=== PATIENT | male | born 1960 | race Caucasian/White ===

== ENCOUNTER 2017-04-02 17:32 | Emergency (ER) | payer OTHER ==
[~2017-04-02] VITALS: Ht 167.6 cm; Wt 87.5 kg
[~2017-04-02 17:32] MED LIST: CARI250T PO; CARV3.122 PO; HYDR-3240 PO; LISI-170 PO
[2017-04-02] MEDS ORDERED: ONDANSETRON 2MG/ML, 2ML ONE (17:46)
[2017-04-02] MEDS ORDERED: SODIUM CHLORIDE 0.9% 1,000ML IVBOLUS ONE (18:00)
[2017-04-02] MEDS ORDERED: SODIUM CHLORIDE FLUSH 10ML SYR IVF ONE (18:00)
[2017-04-02] MEDS ORDERED: ONDANSETRON 2MG/ML, 2ML IVPush ONE (18:00)
[2017-04-02] MEDS ORDERED: HYDR200T5 PO (18:13)
[2017-04-02] MEDS ORDERED: LEFL10TA14 PO (18:13)
[2017-04-02] MEDS ORDERED: PRED1TAB PO (18:13)
[2017-04-02] MEDS ORDERED: METF500T4 PO (18:13)
[2017-04-02 18:18] LABS: HEMATOCRIT 39.5 % (39.2-51.8); HEMOGLOBIN 13.2 g/dL (13.7-18.0); WHITE BLOOD COUNT 6.6 x10^3/uL (3.4-10)
[2017-04-02 18:31] LABS: BLOOD UREA NITROGEN 11 mg/dL (7-18)
[2017-04-02 18:35] LABS: ASPARTATE AMINO TRANSFERASE 327 U/L (15-37)
[2017-04-02] MEDS ORDERED: PROMETHAZINE 25 MG/ML, 1ML ONE (20:58)
[2017-04-02] MEDS ORDERED: PROMETHAZINE 25 MG/ML, 1ML IM STA (20:59)
[2017-04-02 21:12] VITALS: BP 130/95
== END 2017-04-02 23:09 | disposition home or self-care (01) ==
LOC: ED 22:22
DX: K52.9 Noninfective gastroenteritis and colitis, unspecified (principal); R94.5 Abnormal results of liver function studies; M06.9 Rheumatoid arthritis, unspecified; E11.9 Type 2 diabetes mellitus without complications; I10 Essential (primary) hypertension
CPT/HCPCS: 36415; 76700; 80053; 83690; 85025; 86704; 86706; 86708; 86803; 87046; 87324; 87340; 89055; 96361; 96372; 96374; 99285; J2405; J2550; J7030; 87899

== ENCOUNTER 2017-05-11 07:28 | Day surgery (SDC) | payer OTHER ==
[~2017-05-11] VITALS: Ht 167.6 cm; Wt 84.2 kg
[~2017-05-11 07:28] MED LIST changes: +HYDR200T5 PO; +LEFL10TA14 PO; +METF500T4 PO; +PRED1TAB PO
[2017-05-11 08:17] VITALS: BP 152/105
[2017-05-11] MEDS ORDERED: SODIUM CHLORIDE 0.9% 1,000 ML IV SCH (08:30)
[2017-05-11] MEDS ORDERED: LIDOCAINE 1%, 20ML ONE (08:51)
[2017-05-11] MEDS ORDERED: FLUMAZENIL 0.1 MG/1 ML, 5ML ONE (09:05)
[2017-05-11] MEDS ORDERED: MIDAZOLAM 1 MG/ML, 5ML ONE (09:05)
[2017-05-11] MEDS ORDERED: FENTANYL PF 100 MCG/2ML ONE (09:05)
[2017-05-11] MEDS ORDERED: NALOXONE 1 MG/ML, 2ML ONE (09:05)
== END 2017-05-11 11:00 ==
LOC: RAD 07:28 → OUT 11:00
PROVIDERS: ATTEND Internal Medicine
DX: E86.0 Dehydration (principal); R76.8 Other specified abnormal immunological findings in serum; K52.9 Noninfective gastroenteritis and colitis, unspecified; I10 Essential (primary) hypertension; Z86.19 Personal history of other infectious and parasitic diseases
CPT/HCPCS: 36415; 47000; 76942; 85610; 88307; 88313; 99156; 99157; J2250; J3010; J3490; J7030; J2310

== ENCOUNTER 2021-04-20 09:19 | Inpatient (IN) | payer OTHER ==
[~2021-04-20] VITALS: Ht 167.6 cm; Wt 71.4 kg
[~2021-04-20 09:19] MED LIST changes: +HYDR-2214 PO; -HYDR-3240 PO; +LEFL10TA PO; -LEFL10TA14 PO; +METF500T17 PO; -METF500T4 PO; -PRED1TAB PO; +PRED1TAB19 PO
--- NOTE | 2021-04-20 10:04 | NUR ---
DIRECTOR ONCOLOGY: PT PLACED ON O2 IN TRIAGE, 2 LPM VIA NV. SPO2 INCREASE TO 92%.
--- NOTE | 2021-04-20 10:09 | NUR ---
COLLIN RN: THIS IS A 60 YEAR OLD MALE WHO C/O COVID SYMPTOMS. FEVER, CHILLS, CONGESTION, COUGH, SOB, LOST OF TASTE/SMELL, AND N/V.
[2021-04-20] MEDS ORDERED: SODIUM CHLORIDE 0.9% 1,000ML IVBOLUS ONE (10:30)
[2021-04-20] MEDS ORDERED: ONDANSETRON 2MG/ML, 2ML IVPush ONE (10:30)
[2021-04-20] MEDS ORDERED: ONDANSETRON 2MG/ML, 2ML ONE (10:35)
--- NOTE | 2021-04-20 10:48 | NUR ---
18 GAUGE IV STARTED LEFT AC BY GATE KEEPER STUDENT, BLOOD DRAWN AND SENT TO LAB. PATIENT CONNECTED TO MONITOR, VSS, NADN, CALL LIGHT WITHIN REACH.
[2021-04-20 11:00] LABS: BASOPHILS % (AUTO) 1 % (0-1); EOSINOPHILS % (AUTO) 0 % (1-7); LYMPHOCYTES % (AUTO) 14 % (22-44); MEAN CORPUSCULAR HEMOGLOBIN 28.8 pg (27.5-34.5); MEAN CORPUSCULAR HGB CONC 33.9 g/dL (33.2-36.2); MEAN PLATELET VOLUME 9.6 fL (7.4-10.4); MONOCYTES % (AUTO) 7 % (2-9); NEUTROPHILS % (AUTO) 79 % (42-75); PLATELET COUNT 128 x10^3/uL (130-400); RED BLOOD COUNT 4.71 x10^6/uL (4.38-5.82)
[2021-04-20 11:09] LABS: ALBUMIN 3.1 g/dL (3.4-5.0); ANION GAP 9 mmol/L (5-15); CALCIUM 8.8 mg/dL (8.5-10.1); CHLORIDE 103 mmol/L (98-107)
[2021-04-20 11:10] LABS: CREATININE 1.14 mg/dL (0.7-1.3)
[2021-04-20] MEDS ORDERED: TRAZODONE 50MG TABLET PO PRN (12:00)
[2021-04-20] MEDS ORDERED: DEXAMETHASONE 4 MG/ML, 1ML IVPush ONE (12:00)
[2021-04-20] MEDS: LISINOPRIL 20 MG TABLET PO SCH ×2 (12:00→20:33)
[2021-04-20] MEDS: LEFLUNOMIDE 10 MG TABLET PO SCH (12:00)
[2021-04-20] MEDS ORDERED: CEFTRIAXONE 1,000 MG in DEXTROSE 5% 50 ML IVPB ONE (12:00)
[2021-04-20] MEDS ORDERED: ENOXAPARIN 30 MG/0.3 ML SQ SCH (12:00)
[2021-04-20] MEDS ORDERED: CARVEDILOL 3.125 MG TABLET PO SCH (12:00)
[2021-04-20] MEDS: HYDROXYCHLOROQUINE 200 MG TABLET PO SCH (12:00)
[2021-04-20] MEDS: metFORMIN 500 MG TABLET PO SCH ×2 (12:00→20:30)
[2021-04-20] MEDS ORDERED: metFORMIN 500 MG TABLET ONE (12:07)
[2021-04-20] MEDS ORDERED: CHOLECALCIFEROL 5,000u TAB ONE (12:07)
[2021-04-20] MEDS ORDERED: ENOXAPARIN 40 MG/0.4 ML ONE (12:07)
[2021-04-20] MEDS ORDERED: LISINOPRIL 10 MG TABLET ONE (12:08)
[2021-04-20] MEDS ORDERED: GUAIFENESIN ER 600 MG TABLET ONE (12:08)
[2021-04-20] MEDS ORDERED: ZINC SULFATE 220 MG CAPSULE ONE (12:08)
[2021-04-20] MEDS ORDERED: CARVEDILOL 3.125 MG TABLET ONE (12:08)
[2021-04-20] MEDS: CHOLECALCIFEROL 5,000u TAB PO SCH (12:15)
[2021-04-20] MEDS: ZINC SULFATE 220 MG CAPSULE PO SCH (12:16)
[2021-04-20] MEDS: GUAIFENESIN ER 600 MG TABLET PO SCH ×2 (12:16→20:30)
--- NOTE | 2021-04-20 12:25 | NUR ---
REPORT TO UZMA GUSMAN RN FOR TRANSFER OF PATIENT CARE.
--- NOTE | 2021-04-20 12:25 | NUR ---
PATIENT MEDICATED PER eMAR, PATIENT REPORTS TAKING HIS COREG, METFORMIN, LEFLUNOMIDE, PLAQUENIL, AND LISINOPRIL THIS MORNING. NEXT DOSE DUE THIS EVENING. NON-ADMINISTRATION OF 1200 DOSES.
[2021-04-20] MEDS ORDERED: DEXAMETHASONE 4 MG/ML, 5ML IVPush ONE (12:30)
[2021-04-20] MEDS ORDERED: AZITHROMYCIN 500 MG in SODIUM CHLORIDE 0.9% 250 ML IV ONE (13:00)
[2021-04-20 13:17] LABS: C-REACTIVE PROTEIN, QUANT 4.5 mg/dL (0.02-0.49)
--- NOTE | 2021-04-20 13:23 | NUR ---
PATIENT TRANSFERRED TO FLOOR IN STABLE CONDITION VIA GURNEY WITH LOCK ASSEMBLER. ALL PATIENT BELONGINGS TAKEN TO FLOOR WITH PATIENT.
[2021-04-20 13:28] VITALS: BP 92/60
[2021-04-20] MEDS ORDERED: CARV-39 PO (13:45)
[2021-04-20] MEDS ORDERED: ASPI-191 PO (13:45)
[2021-04-20] MEDS ORDERED: PRAS10TA4 PO (13:45)
[2021-04-20] MEDS ORDERED: LOSA100T2 PO (13:45)
[2021-04-20] MEDS ORDERED: AMLO-211 PO (13:45)
[2021-04-20] MEDS ORDERED: ROSU40TA22 PO (13:45)
[2021-04-20] MEDS: INSULIN LISPRO 100 UNITS/ML, PEN SQ-INSULIN SCH ×2 (16:00→22:28)
[2021-04-20] MEDS: ASCORBIC ACID 500 MG TABLET PO SCH (16:17)
[2021-04-20] MEDS ORDERED: REMDESIVIR 200 MG in SODIUM CHLORIDE 0.9% 250 ML IVPB ONE (17:00)
[2021-04-20] MEDS ORDERED: PHARMACY INSTRUCTION MC SCH (17:00)
[2021-04-20 19:19] VITALS: BP 103/68
[2021-04-20] MEDS: ACETAMINOPHEN 325 MG TABLET PO PRN (20:31)
[2021-04-20] MEDS: (Rosuvastatin Calcium 40 MG) PO SCH (21:00)
[2021-04-20] MEDS: ENOXAPARIN 40 MG/0.4 ML SQ SCH (22:25)
[2021-04-20] MEDS ORDERED: OMNIPAQUE 350 MG/ML, 100ML BOTTLE ONE (23:23)
[2021-04-21 02:01] VITALS: BP 104/70
[2021-04-21 05:03] LABS: ALBUMIN 2.9 g/dL (3.4-5.0); ANION GAP 7 mmol/L (5-15); CALCIUM 8.3 mg/dL (8.5-10.1); CHLORIDE 110 mmol/L (98-107)
[2021-04-21 05:20] LABS: ALANINE AMINOTRANSFERASE 39 U/L (12-78); ALKALINE PHOSPHATASE 73 U/L (45-117); BILIRUBIN,TOTAL 0.7 mg/dL (0.2-1.0); CREATININE 0.75 mg/dL (0.7-1.3); TOTAL PROTEIN 6.8 g/dL (6.4-8.2)
[2021-04-21] MEDS: INSULIN LISPRO 100 UNITS/ML, PEN SQ-INSULIN SCH ×4 (07:00→21:27)
[2021-04-21 08:55] VITALS: BP 111/73
[2021-04-21] MEDS: DEXAMETHASONE 4 MG/ML, 1ML IVPush SCH (09:00)
[2021-04-21] MEDS: ASPIRIN 81 MG TABLET EC PO SCH (09:28)
[2021-04-21] MEDS: PRASUGREL 10 MG TABLET PO SCH (09:28)
[2021-04-21] MEDS: ASCORBIC ACID 500 MG TABLET PO SCH ×2 (09:28→16:24)
[2021-04-21] MEDS: ZINC SULFATE 220 MG CAPSULE PO SCH (09:30)
[2021-04-21] MEDS: LOSARTAN 100 MG TAB PO SCH (09:30)
[2021-04-21] MEDS: GUAIFENESIN ER 600 MG TABLET PO SCH ×2 (09:30→21:26)
[2021-04-21] MEDS: CHOLECALCIFEROL 5,000u TAB PO SCH (09:32)
[2021-04-21] MEDS: CARVEDILOL 25 MG TABLET PO SCH (09:32)
[2021-04-21] MEDS: LISINOPRIL 20 MG TABLET PO SCH ×2 (09:32→21:00)
[2021-04-21] MEDS: LEFLUNOMIDE 10 MG TABLET PO SCH (09:34)
[2021-04-21] MEDS: AMLODIPINE 10 MG TAB PO SCH (09:35)
[2021-04-21] MEDS: metFORMIN 500 MG TABLET PO SCH ×2 (09:35→21:26)
[2021-04-21] MEDS: HYDROXYCHLOROQUINE 200 MG TABLET PO SCH (09:36)
[2021-04-21] MEDS: ENOXAPARIN 40 MG/0.4 ML SQ SCH (12:17)
[2021-04-21 12:50] VITALS: BP 107/65
[2021-04-21] MEDS: ACETAMINOPHEN 325 MG TABLET PO PRN (14:45)
[2021-04-21] MEDS: REMDESIVIR 100 MG in SODIUM CHLORIDE 0.9% 250 ML IVPB SCH (16:23)
[2021-04-21 19:35] VITALS: BP 99/63
[2021-04-21] MEDS: (Rosuvastatin Calcium 40 MG) PO SCH (21:00)
[2021-04-21] MEDS ORDERED: DIPHENOXYLATE/ATROPINE TABLET ONE (21:42)
[2021-04-21] MEDS ORDERED: DIPHENOXYLATE/ATROPINE TABLET PO PRN (22:00)
[2021-04-21 22:49] LABS: CLOSTRIDIUM DIFFICILE ANTIGEN NEGATIVE; CLOSTRIDIUM DIFFICILE TOXIN NEGATIVE (Negative)
[2021-04-21] MEDS: MELATONIN 5 MG TABLET PO PRN (23:09)
[2021-04-22] MEDS: ENOXAPARIN 40 MG/0.4 ML SQ SCH ×2 (00:12→11:43)
[2021-04-22 02:05] VITALS: BP 109/72
[2021-04-22 07:02] LABS: CHLORIDE 111 mmol/L (98-107)
[2021-04-22 07:08] LABS: ALANINE AMINOTRANSFERASE 54 U/L (12-78); ALBUMIN 2.6 g/dL (3.4-5.0); ALKALINE PHOSPHATASE 74 U/L (45-117); ANION GAP 6 mmol/L (5-15); BILIRUBIN,TOTAL 0.4 mg/dL (0.2-1.0); CALCIUM 8.5 mg/dL (8.5-10.1); CREATININE 0.67 mg/dL (0.7-1.3); TOTAL PROTEIN 6.2 g/dL (6.4-8.2)
[2021-04-22] MEDS: INSULIN LISPRO 100 UNITS/ML, PEN SQ-INSULIN SCH ×4 (07:16→21:36)
[2021-04-22] MEDS: ZINC SULFATE 220 MG CAPSULE PO SCH (08:48)
[2021-04-22] MEDS: CARVEDILOL 25 MG TABLET PO SCH (08:49)
[2021-04-22] MEDS: metFORMIN 500 MG TABLET PO SCH ×2 (08:49→21:35)
[2021-04-22] MEDS: ASCORBIC ACID 500 MG TABLET PO SCH ×2 (08:49→17:03)
[2021-04-22] MEDS: GUAIFENESIN ER 600 MG TABLET PO SCH ×2 (08:50→20:36)
[2021-04-22] MEDS: HYDROXYCHLOROQUINE 200 MG TABLET PO SCH (08:50)
[2021-04-22] MEDS: LOSARTAN 100 MG TAB PO SCH (08:50)
[2021-04-22] MEDS: AMLODIPINE 10 MG TAB PO SCH (08:50)
[2021-04-22] MEDS: ASPIRIN 81 MG TABLET EC PO SCH (08:50)
[2021-04-22] MEDS: LISINOPRIL 20 MG TABLET PO SCH ×2 (08:51→21:00)
[2021-04-22] MEDS: LEFLUNOMIDE 10 MG TABLET PO SCH (08:51)
[2021-04-22] MEDS: PRASUGREL 10 MG TABLET PO SCH (08:51)
[2021-04-22] MEDS: CHOLECALCIFEROL 5,000u TAB PO SCH (08:51)
[2021-04-22] MEDS: DEXAMETHASONE 4 MG/ML, 1ML IVPush SCH (08:52)
[2021-04-22] MEDS: REMDESIVIR 100 MG in SODIUM CHLORIDE 0.9% 250 ML IVPB SCH (17:03)
[2021-04-22 19:12] VITALS: BP 133/85
[2021-04-22] MEDS: ACETAMINOPHEN 325 MG TABLET PO PRN (20:34)
[2021-04-22] MEDS: (Rosuvastatin Calcium 40 MG) PO SCH (21:36)
[2021-04-22] MEDS: MELATONIN 5 MG TABLET PO PRN (21:37)
[2021-04-23] MEDS: ENOXAPARIN 40 MG/0.4 ML SQ SCH ×2 (00:51→11:44)
[2021-04-23 02:42] VITALS: BP 129/81
[2021-04-23] MEDS: INSULIN LISPRO 100 UNITS/ML, PEN SQ-INSULIN SCH ×4 (07:00→21:50)
[2021-04-23 07:28] LABS: BASOPHILS % (AUTO) 0 % (0-1); EOSINOPHILS % (AUTO) 0 % (1-7); LYMPHOCYTES % (AUTO) 10 % (22-44); MEAN CORPUSCULAR HEMOGLOBIN 28.1 pg (27.5-34.5); MEAN CORPUSCULAR HGB CONC 33.2 g/dL (33.2-36.2); MEAN PLATELET VOLUME 9.2 fL (7.4-10.4); MONOCYTES % (AUTO) 8 % (2-9); NEUTROPHILS % (AUTO) 82 % (42-75); PLATELET COUNT 149 x10^3/uL (130-400); RED BLOOD COUNT 4.47 x10^6/uL (4.38-5.82); RED CELL DISTRIBUTION WIDTH 14.9 % (9.4-14.8)
[2021-04-23 07:37] LABS: CHLORIDE 110 mmol/L (98-107)
[2021-04-23 07:45] VITALS: BP 123/77
[2021-04-23 07:46] LABS: ALANINE AMINOTRANSFERASE 62 U/L (12-78); ALBUMIN 2.4 g/dL (3.4-5.0); ALKALINE PHOSPHATASE 79 U/L (45-117); ANION GAP 9 mmol/L (5-15); BILIRUBIN,TOTAL 0.5 mg/dL (0.2-1.0); CALCIUM 8.3 mg/dL (8.5-10.1); CREATININE 0.56 mg/dL (0.7-1.3)
[2021-04-23] MEDS: AMLODIPINE 10 MG TAB PO SCH (09:00)
[2021-04-23] MEDS: LISINOPRIL 20 MG TABLET PO SCH ×3 (09:00→21:00)
[2021-04-23] MEDS: DEXAMETHASONE 4 MG/ML, 1ML IVPush SCH (09:49)
[2021-04-23] MEDS: ASPIRIN 81 MG TABLET EC PO SCH (09:51)
[2021-04-23] MEDS: GUAIFENESIN ER 600 MG TABLET PO SCH ×2 (09:51→21:34)
[2021-04-23] MEDS: HYDROXYCHLOROQUINE 200 MG TABLET PO SCH (09:51)
[2021-04-23] MEDS: LOSARTAN 100 MG TAB PO SCH (09:51)
[2021-04-23] MEDS: ASCORBIC ACID 500 MG TABLET PO SCH ×2 (09:51→16:52)
[2021-04-23] MEDS: metFORMIN 500 MG TABLET PO SCH ×2 (09:51→21:34)
[2021-04-23] MEDS: CHOLECALCIFEROL 5,000u TAB PO SCH (09:51)
[2021-04-23] MEDS: ZINC SULFATE 220 MG CAPSULE PO SCH (09:52)
[2021-04-23] MEDS: CARVEDILOL 25 MG TABLET PO SCH (09:52)
[2021-04-23] MEDS: PRASUGREL 10 MG TABLET PO SCH (10:20)
[2021-04-23] MEDS: LEFLUNOMIDE 10 MG TABLET PO SCH (10:21)
[2021-04-23] MEDS ORDERED: FUROSEMIDE 20 MG TABLET PO ONE ×2 (12:30→17:00)
[2021-04-23 12:33] VITALS: BP 107/70
[2021-04-23] MEDS: REMDESIVIR 100 MG in SODIUM CHLORIDE 0.9% 250 ML IVPB SCH (16:51)
[2021-04-23] MEDS ORDERED: FUROSEMIDE 20 MG TABLET PO SCH (17:00)
[2021-04-23 20:56] VITALS: BP 130/83
[2021-04-23] MEDS: (Rosuvastatin Calcium 40 MG) PO SCH (21:34)
[2021-04-24] MEDS: ENOXAPARIN 40 MG/0.4 ML SQ SCH ×2 (00:28→11:58)
[2021-04-24 02:42] VITALS: BP 150/71
[2021-04-24] MEDS: ACETAMINOPHEN 325 MG TABLET PO PRN (03:58)
[2021-04-24 05:52] LABS: BASOPHILS % (AUTO) 0 % (0-1); EOSINOPHILS % (AUTO) 0 % (1-7); LYMPHOCYTES % (AUTO) 10 % (22-44); MEAN CORPUSCULAR HEMOGLOBIN 28.1 pg (27.5-34.5); MEAN CORPUSCULAR HGB CONC 33.5 g/dL (33.2-36.2); MEAN PLATELET VOLUME 9.3 fL (7.4-10.4); MONOCYTES % (AUTO) 7 % (2-9); NEUTROPHILS % (AUTO) 83 % (42-75); PLATELET COUNT 172 x10^3/uL (130-400); RED BLOOD COUNT 4.47 x10^6/uL (4.38-5.82); RED CELL DISTRIBUTION WIDTH 15.1 % (9.4-14.8)
[2021-04-24 05:57] LABS: ALBUMIN 2.4 g/dL (3.4-5.0); ANION GAP 7 mmol/L (5-15); CHLORIDE 106 mmol/L (98-107)
[2021-04-24 06:22] LABS: % IRON SATURATION 20 % (20-55); ALANINE AMINOTRANSFERASE 146 U/L (12-78); ALKALINE PHOSPHATASE 94 U/L (45-117); BILIRUBIN,TOTAL 0.6 mg/dL (0.2-1.0); CREATININE 0.62 mg/dL (0.7-1.3); IRON LEVEL 57 mcg/dL (65-175); TOTAL IRON BINDING CAPACITY 279 mcg/dL (250-450); TOTAL PROTEIN 6.1 g/dL (6.4-8.2)
[2021-04-24 06:47] LABS: FREE T4 (FREE THYROXINE) 1.24 ng/dL (0.76-1.46)
[2021-04-24 07:54] VITALS: BP 125/83
[2021-04-24] MEDS: INSULIN LISPRO 100 UNITS/ML, PEN SQ-INSULIN SCH ×4 (07:56→21:21)
[2021-04-24] MEDS: LISINOPRIL 20 MG TABLET PO SCH ×3 (09:35→21:00)
[2021-04-24] MEDS: ZINC SULFATE 220 MG CAPSULE PO SCH (09:36)
[2021-04-24] MEDS: PRASUGREL 10 MG TABLET PO SCH (09:36)
[2021-04-24] MEDS: GUAIFENESIN ER 600 MG TABLET PO SCH ×2 (09:37→21:04)
[2021-04-24] MEDS: metFORMIN 500 MG TABLET PO SCH ×2 (09:37→21:04)
[2021-04-24] MEDS: CHOLECALCIFEROL 5,000u TAB PO SCH (09:37)
[2021-04-24] MEDS: ASCORBIC ACID 500 MG TABLET PO SCH ×2 (09:37→16:20)
[2021-04-24] MEDS: HYDROXYCHLOROQUINE 200 MG TABLET PO SCH (09:37)
[2021-04-24] MEDS: AMLODIPINE 10 MG TAB PO SCH ×2 (09:37→09:43)
[2021-04-24] MEDS: CARVEDILOL 25 MG TABLET PO SCH (09:38)
[2021-04-24] MEDS: LEFLUNOMIDE 10 MG TABLET PO SCH (09:38)
[2021-04-24] MEDS: LOSARTAN 100 MG TAB PO SCH (09:38)
[2021-04-24] MEDS: ASPIRIN 81 MG TABLET EC PO SCH (09:39)
[2021-04-24] MEDS: DEXAMETHASONE 4 MG/ML, 1ML IVPush SCH (09:39)
[2021-04-24] MEDS ORDERED: POTASSIUM CHLORIDE 20 MEQ PACKET PO SCH (10:30)
[2021-04-24] MEDS: FUROSEMIDE 20 MG TABLET PO SCH ×2 (11:53→16:19)
[2021-04-24 12:07] VITALS: BP 120/80
[2021-04-24 12:43] VITALS: BP 108/63
[2021-04-24] MEDS: REMDESIVIR 100 MG in SODIUM CHLORIDE 0.9% 250 ML IVPB SCH (16:04)
[2021-04-24 18:50] VITALS: BP 134/88
[2021-04-24] MEDS: (Rosuvastatin Calcium 40 MG) PO SCH (21:00)
[2021-04-25 00:06] VITALS: BP 130/79
[2021-04-25] MEDS: ENOXAPARIN 40 MG/0.4 ML SQ SCH ×3 (00:36→23:29)
[2021-04-25 06:30] LABS: BASOPHILS % (AUTO) 0 % (0-1); EOSINOPHILS % (AUTO) 0 % (1-7); LYMPHOCYTES % (AUTO) 11 % (22-44); MEAN CORPUSCULAR HEMOGLOBIN 27.8 pg (27.5-34.5); MEAN CORPUSCULAR HGB CONC 33.3 g/dL (33.2-36.2); MEAN PLATELET VOLUME 9.1 fL (7.4-10.4); MONOCYTES % (AUTO) 6 % (2-9); NEUTROPHILS % (AUTO) 82 % (42-75); PLATELET COUNT 185 x10^3/uL (130-400); RED BLOOD COUNT 4.52 x10^6/uL (4.38-5.82); RED CELL DISTRIBUTION WIDTH 14.6 % (9.4-14.8)
[2021-04-25 06:41] LABS: ALBUMIN 2.3 g/dL (3.4-5.0); ANION GAP 5 mmol/L (5-15); CALCIUM 8.1 mg/dL (8.5-10.1); CHLORIDE 107 mmol/L (98-107); INTERNATIONAL NORMALIZED RATIO 1.19 (0.93-1.1); PROTHROMBIN TIME 12.6 Seconds (9.6-11.5)
[2021-04-25] MEDS: INSULIN LISPRO 100 UNITS/ML, PEN SQ-INSULIN SCH ×4 (07:00→20:24)
[2021-04-25 07:05] LABS: ALANINE AMINOTRANSFERASE 149 U/L (12-78); ALKALINE PHOSPHATASE 99 U/L (45-117); BILIRUBIN,TOTAL 0.6 mg/dL (0.2-1.0); CREATININE 0.58 mg/dL (0.7-1.3); TOTAL PROTEIN 6.3 g/dL (6.4-8.2)
[2021-04-25 07:27] VITALS: BP 147/91
[2021-04-25] MEDS: CEFTRIAXONE 1,000 MG in DEXTROSE 5% 50 ML IVPB SCH (08:48)
[2021-04-25] MEDS: ASCORBIC ACID 500 MG TABLET PO SCH ×2 (08:48→17:03)
[2021-04-25] MEDS: POTASSIUM CHLORIDE 20 MEQ TAB.ER.PRT PO SCH (08:48)
[2021-04-25] MEDS: CARVEDILOL 25 MG TABLET PO SCH (08:49)
[2021-04-25] MEDS: DEXAMETHASONE 4 MG/ML, 1ML IVPush SCH (08:49)
[2021-04-25] MEDS: PRASUGREL 10 MG TABLET PO SCH (08:49)
[2021-04-25] MEDS: FUROSEMIDE 20 MG TABLET PO SCH ×2 (08:49→17:04)
[2021-04-25] MEDS: ZINC SULFATE 220 MG CAPSULE PO SCH (08:49)
[2021-04-25] MEDS: LISINOPRIL 20 MG TABLET PO SCH ×2 (08:49→20:14)
[2021-04-25] MEDS: GUAIFENESIN ER 600 MG TABLET PO SCH ×2 (08:50→20:13)
[2021-04-25] MEDS: LOSARTAN 100 MG TAB PO SCH (08:50)
[2021-04-25] MEDS: CHOLECALCIFEROL 5,000u TAB PO SCH (08:50)
[2021-04-25] MEDS: HYDROXYCHLOROQUINE 200 MG TABLET PO SCH (08:50)
[2021-04-25] MEDS: ASPIRIN 81 MG TABLET EC PO SCH (08:50)
[2021-04-25] MEDS: metFORMIN 500 MG TABLET PO SCH ×2 (08:50→20:13)
[2021-04-25] MEDS: AZITHROMYCIN 500 MG TABLET PO SCH (08:50)
[2021-04-25] MEDS: LEFLUNOMIDE 10 MG TABLET PO SCH (08:53)
[2021-04-25] MEDS: AMLODIPINE 10 MG TAB PO SCH (08:53)
[2021-04-25] MEDS: FERROUS SULFATE 325 MG TABLET PO SCH (11:28)
[2021-04-25 13:34] VITALS: BP 107/72
[2021-04-25 18:43] VITALS: BP 124/76
[2021-04-25] MEDS: (Rosuvastatin Calcium 40 MG) PO SCH (20:13)
[2021-04-26 01:32] VITALS: BP 118/69
[2021-04-26 06:26] LABS: BASOPHILS % (AUTO) 0 % (0-1); EOSINOPHILS % (AUTO) 0 % (1-7); LYMPHOCYTES % (AUTO) 14 % (22-44); MEAN CORPUSCULAR HEMOGLOBIN 28.4 pg (27.5-34.5); MEAN CORPUSCULAR HGB CONC 34.1 g/dL (33.2-36.2); MEAN PLATELET VOLUME 9.2 fL (7.4-10.4); MONOCYTES % (AUTO) 8 % (2-9); NEUTROPHILS % (AUTO) 78 % (42-75); PLATELET COUNT 199 x10^3/uL (130-400); RED BLOOD COUNT 4.58 x10^6/uL (4.38-5.82); RED CELL DISTRIBUTION WIDTH 14.9 % (9.4-14.8)
[2021-04-26 06:34] LABS: ALBUMIN 2.3 g/dL (3.4-5.0); ANION GAP 7 mmol/L (5-15); CHLORIDE 106 mmol/L (98-107)
[2021-04-26 06:51] LABS: ALANINE AMINOTRANSFERASE 120 U/L (12-78); ALKALINE PHOSPHATASE 102 U/L (45-117); BILIRUBIN,TOTAL 0.6 mg/dL (0.2-1.0); CREATININE 0.65 mg/dL (0.7-1.3); TOTAL PROTEIN 6.5 g/dL (6.4-8.2)
[2021-04-26] MEDS: INSULIN LISPRO 100 UNITS/ML, PEN SQ-INSULIN SCH ×4 (07:00→20:41)
[2021-04-26] MEDS: ZINC SULFATE 220 MG CAPSULE PO SCH (08:19)
[2021-04-26] MEDS: POTASSIUM CHLORIDE 20 MEQ TAB.ER.PRT PO SCH (08:19)
[2021-04-26] MEDS: LEFLUNOMIDE 10 MG TABLET PO SCH (08:19)
[2021-04-26] MEDS: ASPIRIN 81 MG TABLET EC PO SCH (08:19)
[2021-04-26] MEDS: CARVEDILOL 25 MG TABLET PO SCH ×2 (08:20→20:40)
[2021-04-26] MEDS: PRASUGREL 10 MG TABLET PO SCH (08:20)
[2021-04-26] MEDS: ASCORBIC ACID 500 MG TABLET PO SCH ×2 (08:21→18:23)
[2021-04-26] MEDS: DEXAMETHASONE 4 MG/ML, 1ML IVPush SCH (08:22)
[2021-04-26] MEDS: CHOLECALCIFEROL 5,000u TAB PO SCH (08:22)
[2021-04-26] MEDS: FUROSEMIDE 20 MG TABLET PO SCH ×2 (08:22→18:24)
[2021-04-26] MEDS: metFORMIN 500 MG TABLET PO SCH ×2 (08:23→20:40)
[2021-04-26] MEDS: LOSARTAN 100 MG TAB PO SCH (08:23)
[2021-04-26] MEDS: AZITHROMYCIN 500 MG TABLET PO SCH (08:23)
[2021-04-26] MEDS: GUAIFENESIN ER 600 MG TABLET PO SCH ×2 (08:23→20:40)
[2021-04-26] MEDS: CEFTRIAXONE 1,000 MG in DEXTROSE 5% 50 ML IVPB SCH (08:36)
[2021-04-26 09:11] VITALS: BP 118/67
[2021-04-26 09:30] LABS: C-REACTIVE PROTEIN, QUANT 1.3 mg/dL (0.02-0.49)
[2021-04-26] MEDS: ENOXAPARIN 40 MG/0.4 ML SQ SCH ×2 (12:09→23:52)
[2021-04-26] MEDS: REMDESIVIR 100 MG in SODIUM CHLORIDE 0.9% 250 ML IVPB SCH (12:13)
[2021-04-26 13:32] VITALS: BP 122/68
[2021-04-26 19:02] VITALS: BP 134/80
[2021-04-26] MEDS: (Rosuvastatin Calcium 40 MG) PO SCH (20:39)
[2021-04-26] MEDS: AMLODIPINE 10 MG TAB PO SCH (20:40)
[2021-04-27 00:08] VITALS: BP 113/72
[2021-04-27] MEDS: INSULIN LISPRO 100 UNITS/ML, PEN SQ-INSULIN SCH ×4 (07:00→20:46)
[2021-04-27 07:46] LABS: BASOPHILS % (AUTO) 0 % (0-1); EOSINOPHILS % (AUTO) 0 % (1-7); LYMPHOCYTES % (AUTO) 16 % (22-44); MEAN CORPUSCULAR HEMOGLOBIN 27.9 pg (27.5-34.5); MEAN CORPUSCULAR HGB CONC 33.2 g/dL (33.2-36.2); MEAN PLATELET VOLUME 8.7 fL (7.4-10.4); MONOCYTES % (AUTO) 6 % (2-9); NEUTROPHILS % (AUTO) 77 % (42-75); PLATELET COUNT 219 x10^3/uL (130-400); RED BLOOD COUNT 4.54 x10^6/uL (4.38-5.82); RED CELL DISTRIBUTION WIDTH 14.8 % (9.4-14.8)
[2021-04-27 07:54] LABS: ALBUMIN 2.3 g/dL (3.4-5.0); ANION GAP 7 mmol/L (5-15); CALCIUM 8.5 mg/dL (8.5-10.1); CHLORIDE 103 mmol/L (98-107)
[2021-04-27 07:57] LABS: ALANINE AMINOTRANSFERASE 98 U/L (12-78); ALKALINE PHOSPHATASE 102 U/L (45-117); BILIRUBIN,TOTAL 0.7 mg/dL (0.2-1.0); CREATININE 0.58 mg/dL (0.7-1.3); TOTAL PROTEIN 6.6 g/dL (6.4-8.2)
[2021-04-27 08:38] VITALS: BP 131/85
[2021-04-27] MEDS: POTASSIUM CHLORIDE 20 MEQ TAB.ER.PRT PO SCH (08:49)
[2021-04-27] MEDS: metFORMIN 500 MG TABLET PO SCH ×2 (08:49→20:44)
[2021-04-27] MEDS: GUAIFENESIN ER 600 MG TABLET PO SCH (08:51)
[2021-04-27] MEDS: ASPIRIN 81 MG TABLET EC PO SCH (08:51)
[2021-04-27] MEDS: LOSARTAN 100 MG TAB PO SCH (08:52)
[2021-04-27] MEDS: ASCORBIC ACID 500 MG TABLET PO SCH ×2 (08:52→17:30)
[2021-04-27] MEDS: CHOLECALCIFEROL 5,000u TAB PO SCH (08:53)
[2021-04-27] MEDS: CARVEDILOL 25 MG TABLET PO SCH ×2 (08:53→20:44)
[2021-04-27] MEDS: ZINC SULFATE 220 MG CAPSULE PO SCH (08:54)
[2021-04-27] MEDS: AZITHROMYCIN 500 MG TABLET PO SCH (08:54)
[2021-04-27] MEDS: CEFTRIAXONE 1,000 MG in DEXTROSE 5% 50 ML IVPB SCH (08:55)
[2021-04-27] MEDS: PRASUGREL 10 MG TABLET PO SCH (08:55)
[2021-04-27] MEDS: FUROSEMIDE 20 MG TABLET PO SCH ×2 (08:55→17:31)
[2021-04-27] MEDS: DEXAMETHASONE 4 MG/ML, 1ML IVPush SCH (08:58)
[2021-04-27] MEDS: LEFLUNOMIDE 10 MG TABLET PO SCH (09:00)
[2021-04-27] MEDS: FERROUS SULFATE 325 MG TABLET PO SCH (11:06)
[2021-04-27] MEDS: REMDESIVIR 100 MG in SODIUM CHLORIDE 0.9% 250 ML IVPB SCH (12:08)
[2021-04-27] MEDS: ENOXAPARIN 40 MG/0.4 ML SQ SCH (12:09)
[2021-04-27 15:00] VITALS: BP 106/63
[2021-04-27 18:46] VITALS: BP 113/68
[2021-04-27] MEDS: GUAIFENESIN/DM 200-20MG, 10ML UDC PO SCH (20:44)
[2021-04-27] MEDS: AMLODIPINE 10 MG TAB PO SCH (20:44)
[2021-04-27] MEDS: (Rosuvastatin Calcium 40 MG) PO SCH (20:48)
[2021-04-28] MEDS: GUAIFENESIN/DM 200-20MG, 10ML UDC PO SCH ×4 (00:46→21:21)
[2021-04-28] MEDS: ENOXAPARIN 40 MG/0.4 ML SQ SCH ×2 (00:46→12:41)
[2021-04-28 00:51] VITALS: BP 100/64
[2021-04-28] MEDS: ACETAMINOPHEN 325 MG TABLET PO PRN (03:55)
[2021-04-28 04:21] LABS: BASOPHILS % (AUTO) 0 % (0-1); EOSINOPHILS % (AUTO) 1 % (1-7); LYMPHOCYTES % (AUTO) 14 % (22-44); MEAN CORPUSCULAR HEMOGLOBIN 28.3 pg (27.5-34.5); MEAN PLATELET VOLUME 8.7 fL (7.4-10.4); MONOCYTES % (AUTO) 6 % (2-9); NEUTROPHILS % (AUTO) 79 % (42-75); PLATELET COUNT 219 x10^3/uL (130-400); RED BLOOD COUNT 4.62 x10^6/uL (4.38-5.82); RED CELL DISTRIBUTION WIDTH 14.8 % (9.4-14.8)
[2021-04-28 04:33] LABS: ALBUMIN 2.2 g/dL (3.4-5.0); CHLORIDE 100 mmol/L (98-107)
[2021-04-28 04:37] LABS: ALANINE AMINOTRANSFERASE 85 U/L (12-78); ALKALINE PHOSPHATASE 103 U/L (45-117); ANION GAP 7 mmol/L (5-15); BILIRUBIN,TOTAL 0.6 mg/dL (0.2-1.0); CALCIUM 8.5 mg/dL (8.5-10.1); CREATININE 0.67 mg/dL (0.7-1.3); TOTAL PROTEIN 6.6 g/dL (6.4-8.2)
[2021-04-28] MEDS: INSULIN LISPRO 100 UNITS/ML, PEN SQ-INSULIN SCH ×4 (07:00→21:24)
[2021-04-28] MEDS: DEXAMETHASONE 4 MG/ML, 1ML IVPush SCH (08:25)
[2021-04-28] MEDS: metFORMIN 500 MG TABLET PO SCH ×2 (08:26→21:21)
[2021-04-28] MEDS: ASPIRIN 81 MG TABLET EC PO SCH (08:26)
[2021-04-28] MEDS: PRASUGREL 10 MG TABLET PO SCH (08:27)
[2021-04-28] MEDS: LOSARTAN 100 MG TAB PO SCH (08:27)
[2021-04-28] MEDS: ASCORBIC ACID 500 MG TABLET PO SCH ×2 (08:27→16:47)
[2021-04-28] MEDS: POTASSIUM CHLORIDE 20 MEQ TAB.ER.PRT PO SCH (08:27)
[2021-04-28] MEDS: FUROSEMIDE 20 MG TABLET PO SCH ×2 (08:28→16:48)
[2021-04-28] MEDS: CHOLECALCIFEROL 5,000u TAB PO SCH (08:28)
[2021-04-28] MEDS: CARVEDILOL 25 MG TABLET PO SCH ×2 (08:28→21:21)
[2021-04-28] MEDS: ZINC SULFATE 220 MG CAPSULE PO SCH (08:28)
[2021-04-28 08:35] VITALS: BP 100/65
[2021-04-28] MEDS ORDERED: LEFLUNOMIDE 20 MG TABLET PO SCH (09:00)
[2021-04-28 11:55] VITALS: BP 97/70
[2021-04-28 12:00] VITALS: BP 97/70
[2021-04-28] MEDS: REMDESIVIR 100 MG in SODIUM CHLORIDE 0.9% 250 ML IVPB SCH (12:41)
[2021-04-28 18:20] VITALS: BP 118/82
[2021-04-28] MEDS: (Rosuvastatin Calcium 40 MG) PO SCH (21:00)
[2021-04-28] MEDS: AMLODIPINE 10 MG TAB PO SCH (21:21)
[2021-04-28] MEDS: MELATONIN 5 MG TABLET PO PRN (21:21)
[2021-04-29 00:06] VITALS: BP 95/54
[2021-04-29] MEDS: GUAIFENESIN/DM 200-20MG, 10ML UDC PO SCH ×4 (01:12→22:17)
[2021-04-29] MEDS: ACETAMINOPHEN 325 MG TABLET PO PRN ×2 (01:19→22:17)
[2021-04-29 04:50] LABS: BASOPHILS % (AUTO) 0 % (0-1); EOSINOPHILS % (AUTO) 1 % (1-7); LYMPHOCYTES % (AUTO) 12 % (22-44); MEAN CORPUSCULAR HEMOGLOBIN 28.2 pg (27.5-34.5); MEAN CORPUSCULAR HGB CONC 33.6 g/dL (33.2-36.2); MEAN PLATELET VOLUME 8.6 fL (7.4-10.4); MONOCYTES % (AUTO) 6 % (2-9); NEUTROPHILS % (AUTO) 81 % (42-75); PLATELET COUNT 238 x10^3/uL (130-400); RED BLOOD COUNT 4.76 x10^6/uL (4.38-5.82); RED CELL DISTRIBUTION WIDTH 15.1 % (9.4-14.8)
[2021-04-29 05:00] LABS: ALANINE AMINOTRANSFERASE 69 U/L (12-78); ALBUMIN 2.2 g/dL (3.4-5.0); ANION GAP 9 mmol/L (5-15); CALCIUM 8.6 mg/dL (8.5-10.1); CHLORIDE 104 mmol/L (98-107); CREATININE 0.68 mg/dL (0.7-1.3)
[2021-04-29 05:02] LABS: ALKALINE PHOSPHATASE 113 U/L (45-117); BILIRUBIN,TOTAL 0.5 mg/dL (0.2-1.0); TOTAL PROTEIN 6.7 g/dL (6.4-8.2)
[2021-04-29 07:04] VITALS: BP 96/64
[2021-04-29] MEDS: PRASUGREL 10 MG TABLET PO SCH (08:57)
[2021-04-29] MEDS: CHOLECALCIFEROL 5,000u TAB PO SCH (08:57)
[2021-04-29] MEDS: metFORMIN 500 MG TABLET PO SCH ×2 (08:57→17:01)
[2021-04-29] MEDS: ASCORBIC ACID 500 MG TABLET PO SCH ×2 (08:57→17:01)
[2021-04-29] MEDS: LOSARTAN 100 MG TAB PO SCH (08:57)
[2021-04-29] MEDS: FUROSEMIDE 20 MG TABLET PO SCH ×2 (08:58→17:01)
[2021-04-29] MEDS: ASPIRIN 81 MG TABLET EC PO SCH (08:58)
[2021-04-29] MEDS: DEXAMETHASONE 4 MG/ML, 1ML IVPush SCH (08:58)
[2021-04-29] MEDS: POTASSIUM CHLORIDE 20 MEQ TAB.ER.PRT PO SCH (08:58)
[2021-04-29] MEDS: ZINC SULFATE 220 MG CAPSULE PO SCH (08:58)
[2021-04-29] MEDS: CARVEDILOL 25 MG TABLET PO SCH ×2 (08:58→22:18)
[2021-04-29] MEDS: INSULIN LISPRO 100 UNITS/ML, PEN SQ-INSULIN SCH ×4 (08:59→22:18)
[2021-04-29] MEDS ORDERED: SODIUM CHLORIDE INHALATION 7%, 4 ML NPPB ONE ×2 (09:30→14:00)
[2021-04-29] MEDS: ENOXAPARIN 40 MG/0.4 ML SQ SCH ×2 (12:00)
[2021-04-29 12:16] VITALS: BP 123/80
[2021-04-29] MEDS: REMDESIVIR 100 MG in SODIUM CHLORIDE 0.9% 250 ML IVPB SCH (12:23)
[2021-04-29] MEDS: FERROUS SULFATE 325 MG TABLET PO SCH (12:24)
[2021-04-29] MEDS ORDERED: GUAIFENESIN 100 MG/5 ML, 10ML UDC PO ONE (14:30)
[2021-04-29] MEDS ORDERED: GUAIFENESIN 200 MG TABLET PO ONE (14:30)
[2021-04-29 20:00] VITALS: BP 101/64
[2021-04-29] MEDS: (Rosuvastatin Calcium 40 MG) PO SCH (21:00)
[2021-04-29] MEDS: AMLODIPINE 10 MG TAB PO SCH (22:17)
[2021-04-30] MEDS: GUAIFENESIN/DM 200-20MG, 10ML UDC PO SCH ×4 (01:15→22:21)
[2021-04-30 02:01] VITALS: BP 103/63
[2021-04-30 05:13] LABS: BASOPHILS % (AUTO) 0 % (0-1); EOSINOPHILS % (AUTO) 0 % (1-7); LYMPHOCYTES % (AUTO) 9 % (22-44); MEAN CORPUSCULAR HGB CONC 33.2 g/dL (33.2-36.2); MEAN PLATELET VOLUME 8.6 fL (7.4-10.4); MONOCYTES % (AUTO) 5 % (2-9); NEUTROPHILS % (AUTO) 87 % (42-75); PLATELET COUNT 229 x10^3/uL (130-400); RED BLOOD COUNT 4.73 x10^6/uL (4.38-5.82); RED CELL DISTRIBUTION WIDTH 14.8 % (9.4-14.8)
[2021-04-30 05:21] LABS: CHLORIDE 106 mmol/L (98-107)
[2021-04-30 05:29] LABS: ALANINE AMINOTRANSFERASE 59 U/L (12-78); ALKALINE PHOSPHATASE 99 U/L (45-117); ANION GAP 6 mmol/L (5-15); BILIRUBIN,TOTAL 0.5 mg/dL (0.2-1.0); CALCIUM 8.4 mg/dL (8.5-10.1); CREATININE 0.58 mg/dL (0.7-1.3); TOTAL PROTEIN 6.3 g/dL (6.4-8.2)
[2021-04-30] MEDS: FUROSEMIDE 20 MG TABLET PO SCH ×2 (07:58→17:00)
[2021-04-30] MEDS: LOSARTAN 100 MG TAB PO SCH (07:58)
[2021-04-30] MEDS: ASPIRIN 81 MG TABLET EC PO SCH (07:58)
[2021-04-30] MEDS: CARVEDILOL 25 MG TABLET PO SCH ×2 (07:58→22:22)
[2021-04-30] MEDS: ZINC SULFATE 220 MG CAPSULE PO SCH (07:58)
[2021-04-30] MEDS: INSULIN LISPRO 100 UNITS/ML, PEN SQ-INSULIN SCH ×4 (07:58→22:25)
[2021-04-30] MEDS: DEXAMETHASONE 4 MG/ML, 1ML IVPush SCH (07:59)
[2021-04-30] MEDS: POTASSIUM CHLORIDE 20 MEQ TAB.ER.PRT PO SCH (07:59)
[2021-04-30] MEDS: CHOLECALCIFEROL 5,000u TAB PO SCH (07:59)
[2021-04-30] MEDS: PRASUGREL 10 MG TABLET PO SCH (07:59)
[2021-04-30] MEDS: metFORMIN 500 MG TABLET PO SCH ×2 (07:59→17:00)
[2021-04-30 08:00] VITALS: BP 113/75
[2021-04-30] MEDS: ASCORBIC ACID 500 MG TABLET PO SCH ×2 (08:01→16:59)
[2021-04-30] MEDS: REMDESIVIR 100 MG in SODIUM CHLORIDE 0.9% 250 ML IVPB SCH (11:57)
[2021-04-30] MEDS: ENOXAPARIN 40 MG/0.4 ML SQ SCH ×2 (11:57)
[2021-04-30 14:00] VITALS: BP 99/57
[2021-04-30 20:00] VITALS: BP 120/81
[2021-04-30] MEDS: (Rosuvastatin Calcium 40 MG) PO SCH (21:00)
[2021-04-30] MEDS: AMLODIPINE 10 MG TAB PO SCH (22:22)
[2021-05-01] VITALS (23 sets, daily range): BP systolic 56–121; BP diastolic 32–82
[2021-05-01] MEDS: GUAIFENESIN/DM 200-20MG, 10ML UDC PO SCH ×4 (02:25→17:31)
[2021-05-01 04:50] LABS: BASOPHILS % (AUTO) 0 % (0-1); EOSINOPHILS % (AUTO) 0 % (1-7); LYMPHOCYTES % (AUTO) 7 % (22-44); MEAN CORPUSCULAR HEMOGLOBIN 28.4 pg (27.5-34.5); MEAN CORPUSCULAR HGB CONC 33.5 g/dL (33.2-36.2); MEAN PLATELET VOLUME 8.6 fL (7.4-10.4); MONOCYTES % (AUTO) 5 % (2-9); NEUTROPHILS % (AUTO) 88 % (42-75); PLATELET COUNT 203 x10^3/uL (130-400); RED BLOOD COUNT 4.68 x10^6/uL (4.38-5.82); RED CELL DISTRIBUTION WIDTH 14.9 % (9.4-14.8)
[2021-05-01 04:58] LABS: ALBUMIN 1.9 g/dL (3.4-5.0); ANION GAP 7 mmol/L (5-15); CALCIUM 7.9 mg/dL (8.5-10.1); CHLORIDE 103 mmol/L (98-107)
[2021-05-01 05:00] LABS: CREATININE 0.59 mg/dL (0.7-1.3)
[2021-05-01] MEDS: ZINC SULFATE 220 MG CAPSULE PO SCH (07:36)
[2021-05-01] MEDS: INSULIN LISPRO 100 UNITS/ML, PEN SQ-INSULIN SCH ×4 (07:36→20:21)
[2021-05-01] MEDS: ASPIRIN 81 MG TABLET EC PO SCH (07:36)
[2021-05-01] MEDS: CHOLECALCIFEROL 5,000u TAB PO SCH (07:36)
[2021-05-01] MEDS: LOSARTAN 100 MG TAB PO SCH (07:36)
[2021-05-01] MEDS: PRASUGREL 10 MG TABLET PO SCH (07:36)
[2021-05-01] MEDS: FUROSEMIDE 20 MG TABLET PO SCH ×2 (07:37→17:28)
[2021-05-01] MEDS: CARVEDILOL 25 MG TABLET PO SCH ×2 (07:37→20:42)
[2021-05-01] MEDS: metFORMIN 500 MG TABLET PO SCH ×2 (07:37→17:29)
[2021-05-01] MEDS: ASCORBIC ACID 500 MG TABLET PO SCH ×2 (07:37→17:29)
[2021-05-01] MEDS: POTASSIUM CHLORIDE 20 MEQ TAB.ER.PRT PO SCH (07:37)
[2021-05-01] MEDS: DEXAMETHASONE 4 MG/ML, 1ML IVPush SCH (07:38)
[2021-05-01] MEDS: CODEINE SULFATE 30 MG TABLET PO SCH ×3 (10:30→22:30)
[2021-05-01] MEDS: FERROUS SULFATE 325 MG TABLET PO SCH (12:22)
[2021-05-01] MEDS: ENOXAPARIN 40 MG/0.4 ML SQ SCH ×2 (12:22)
[2021-05-01] MEDS: GUAIFENESIN 100 MG/5 ML, 10ML UDC PO SCH ×2 (15:00→20:18)
[2021-05-01] MEDS: MELATONIN 5 MG TABLET PO PRN (20:18)
[2021-05-01] MEDS: (Rosuvastatin Calcium 40 MG) PO SCH (20:20)
[2021-05-01] MEDS: AMLODIPINE 10 MG TAB PO SCH (20:43)
[2021-05-02] VITALS (9 sets, daily range): BP systolic 91–125; BP diastolic 48–83
[2021-05-02] MEDS: ENOXAPARIN 40 MG/0.4 ML SQ SCH ×2 (02:20→14:06)
[2021-05-02] MEDS: GUAIFENESIN 100 MG/5 ML, 10ML UDC PO SCH (02:20)
[2021-05-02] MEDS: GUAIFENESIN/DM 200-20MG, 10ML UDC PO SCH ×4 (02:24→20:18)
[2021-05-02 04:47] LABS: BASOPHILS % (AUTO) 0 % (0-1); EOSINOPHILS % (AUTO) 0 % (1-7); LYMPHOCYTES % (AUTO) 6 % (22-44); MEAN CORPUSCULAR HEMOGLOBIN 28.3 pg (27.5-34.5); MEAN CORPUSCULAR HGB CONC 33.4 g/dL (33.2-36.2); MEAN PLATELET VOLUME 8.5 fL (7.4-10.4); MONOCYTES % (AUTO) 6 % (2-9); NEUTROPHILS % (AUTO) 88 % (42-75); PLATELET COUNT 204 x10^3/uL (130-400); RED BLOOD COUNT 4.65 x10^6/uL (4.38-5.82); RED CELL DISTRIBUTION WIDTH 14.8 % (9.4-14.8)
[2021-05-02 04:56] LABS: ALBUMIN 1.9 g/dL (3.4-5.0); ANION GAP 6 mmol/L (5-15); CALCIUM 8.3 mg/dL (8.5-10.1); CHLORIDE 102 mmol/L (98-107)
[2021-05-02 05:00] LABS: ALANINE AMINOTRANSFERASE 65 U/L (12-78); ALKALINE PHOSPHATASE 105 U/L (45-117); BILIRUBIN,TOTAL 0.5 mg/dL (0.2-1.0); CREATININE 0.66 mg/dL (0.7-1.3); TOTAL PROTEIN 5.9 g/dL (6.4-8.2)
[2021-05-02] MEDS: metFORMIN 500 MG TABLET PO SCH ×2 (07:37→16:39)
[2021-05-02] MEDS: FUROSEMIDE 20 MG TABLET PO SCH ×2 (07:37→16:39)
[2021-05-02] MEDS: ZINC SULFATE 220 MG CAPSULE PO SCH (07:37)
[2021-05-02] MEDS: ASCORBIC ACID 500 MG TABLET PO SCH ×2 (07:38→16:39)
[2021-05-02] MEDS: PRASUGREL 10 MG TABLET PO SCH (07:38)
[2021-05-02] MEDS: POTASSIUM CHLORIDE 20 MEQ TAB.ER.PRT PO SCH (07:38)
[2021-05-02] MEDS: CHOLECALCIFEROL 5,000u TAB PO SCH (07:38)
[2021-05-02] MEDS: ASPIRIN 81 MG TABLET EC PO SCH (07:38)
[2021-05-02] MEDS: DEXAMETHASONE 4 MG/ML, 1ML IVPush SCH (07:39)
[2021-05-02] MEDS: CODEINE SULFATE 30 MG TABLET PO SCH ×3 (07:40→20:00)
[2021-05-02] MEDS: INSULIN LISPRO 100 UNITS/ML, PEN SQ-INSULIN SCH ×4 (07:40→20:28)
[2021-05-02] MEDS: CARVEDILOL 25 MG TABLET PO SCH ×2 (09:00→20:19)
[2021-05-02] MEDS: LOSARTAN 100 MG TAB PO SCH (09:00)
[2021-05-02] MEDS: (Rosuvastatin Calcium 40 MG) PO SCH (20:19)
[2021-05-03] MEDS: MELATONIN 5 MG TABLET PO PRN (00:05)
[2021-05-03] MEDS: ENOXAPARIN 40 MG/0.4 ML SQ SCH ×2 (01:34→15:43)
[2021-05-03] MEDS: GUAIFENESIN/DM 200-20MG, 10ML UDC PO SCH ×5 (01:34→21:22)
[2021-05-03] MEDS: CODEINE SULFATE 30 MG TABLET PO SCH ×4 (01:36→20:00)
[2021-05-03 01:45] VITALS: BP 114/76
[2021-05-03 06:36] VITALS: BP 100/68
[2021-05-03] MEDS: DEXAMETHASONE 4 MG/ML, 1ML IVPush SCH (08:51)
[2021-05-03] MEDS: metFORMIN 500 MG TABLET PO SCH ×2 (08:51→15:44)
[2021-05-03] MEDS: ZINC SULFATE 220 MG CAPSULE PO SCH (08:51)
[2021-05-03] MEDS: ASCORBIC ACID 500 MG TABLET PO SCH ×2 (08:51→15:43)
[2021-05-03] MEDS: ASPIRIN 81 MG TABLET EC PO SCH (08:51)
[2021-05-03] MEDS: PRASUGREL 10 MG TABLET PO SCH (08:51)
[2021-05-03] MEDS: POTASSIUM CHLORIDE 20 MEQ TAB.ER.PRT PO SCH (08:51)
[2021-05-03] MEDS: FUROSEMIDE 20 MG TABLET PO SCH ×2 (08:51→15:44)
[2021-05-03] MEDS: FERROUS SULFATE 325 MG TABLET PO SCH (08:52)
[2021-05-03] MEDS: CARVEDILOL 25 MG TABLET PO SCH ×3 (08:52→21:00)
[2021-05-03] MEDS: CHOLECALCIFEROL 5,000u TAB PO SCH (08:52)
[2021-05-03] MEDS: INSULIN LISPRO 100 UNITS/ML, PEN SQ-INSULIN SCH ×4 (09:30→21:22)
[2021-05-03 13:24] VITALS: BP 104/70
[2021-05-03] MEDS ORDERED: CHOL500045 PO (17:00)
[2021-05-03] MEDS ORDERED: ZINC220C8 PO ×2 (17:00)
[2021-05-03] MEDS ORDERED: FERR-36 PO (17:00)
[2021-05-03] MEDS ORDERED: MELA5TAB14 PO (17:00)
[2021-05-03] MEDS ORDERED: ASCO500T9 PO ×2 (17:00)
[2021-05-03] MEDS ORDERED: FLUT1AER INH (17:00)
[2021-05-03 18:56] VITALS: BP 102/66
[2021-05-03] MEDS: (Rosuvastatin Calcium 40 MG) PO SCH (21:23)
[2021-05-04 00:22] VITALS: BP 114/71
[2021-05-04] MEDS ORDERED: OXYMETAZOLINE NASAL SPRAY 0.05%, 15ML NAS PRN ×2 (02:00→06:00)
[2021-05-04] MEDS: GUAIFENESIN/DM 200-20MG, 10ML UDC PO SCH ×4 (02:15→20:15)
[2021-05-04] MEDS: ENOXAPARIN 40 MG/0.4 ML SQ SCH ×2 (02:15→13:16)
[2021-05-04] MEDS: CODEINE SULFATE 30 MG TABLET PO SCH ×4 (02:15→20:16)
[2021-05-04] MEDS: INSULIN LISPRO 100 UNITS/ML, PEN SQ-INSULIN SCH ×4 (07:00→20:17)
[2021-05-04] MEDS: ASPIRIN 81 MG TABLET EC PO SCH (08:22)
[2021-05-04] MEDS: POTASSIUM CHLORIDE 20 MEQ TAB.ER.PRT PO SCH (08:22)
[2021-05-04] MEDS: PRASUGREL 10 MG TABLET PO SCH (08:23)
[2021-05-04] MEDS: ZINC SULFATE 220 MG CAPSULE PO SCH (08:23)
[2021-05-04] MEDS: metFORMIN 500 MG TABLET PO SCH ×2 (08:23→16:39)
[2021-05-04] MEDS: CHOLECALCIFEROL 5,000u TAB PO SCH (08:23)
[2021-05-04] MEDS: FUROSEMIDE 20 MG TABLET PO SCH (08:23)
[2021-05-04] MEDS: ASCORBIC ACID 500 MG TABLET PO SCH ×2 (08:23→16:39)
[2021-05-04] MEDS: DEXAMETHASONE 4 MG/ML, 1ML IVPush SCH (08:24)
[2021-05-04 08:28] VITALS: BP 110/73
[2021-05-04] MEDS: CARVEDILOL 25 MG TABLET PO SCH ×2 (12:56→20:15)
[2021-05-04 13:56] VITALS: BP 106/74
[2021-05-04 19:08] VITALS: BP 115/78
[2021-05-04] MEDS: (Rosuvastatin Calcium 40 MG) PO SCH (20:17)
[2021-05-05 00:22] VITALS: BP 115/77
[2021-05-05] MEDS: GUAIFENESIN/DM 200-20MG, 10ML UDC PO SCH ×3 (01:47→14:09)
[2021-05-05] MEDS: CODEINE SULFATE 30 MG TABLET PO SCH ×3 (01:47→14:10)
[2021-05-05] MEDS: ENOXAPARIN 40 MG/0.4 ML SQ SCH ×2 (01:48→14:09)
[2021-05-05 07:49] VITALS: BP 102/68
[2021-05-05] MEDS: PRASUGREL 10 MG TABLET PO SCH (07:52)
[2021-05-05] MEDS: POTASSIUM CHLORIDE 20 MEQ TAB.ER.PRT PO SCH (07:52)
[2021-05-05] MEDS: ASCORBIC ACID 500 MG TABLET PO SCH ×2 (07:52→16:16)
[2021-05-05] MEDS: ASPIRIN 81 MG TABLET EC PO SCH (07:52)
[2021-05-05] MEDS: CARVEDILOL 25 MG TABLET PO SCH (07:53)
[2021-05-05] MEDS: ZINC SULFATE 220 MG CAPSULE PO SCH (07:53)
[2021-05-05] MEDS: DEXAMETHASONE 4 MG/ML, 1ML IVPush SCH (07:53)
[2021-05-05] MEDS: CHOLECALCIFEROL 5,000u TAB PO SCH (07:54)
[2021-05-05] MEDS: metFORMIN 500 MG TABLET PO SCH ×2 (07:54→16:16)
[2021-05-05] MEDS: INSULIN LISPRO 100 UNITS/ML, PEN SQ-INSULIN SCH ×3 (08:13→16:15)
[2021-05-05] MEDS: FERROUS SULFATE 325 MG TABLET PO SCH (11:23)
[2021-05-05 12:16] VITALS: BP 103/69
== END 2021-05-05 17:04 | disposition home or self-care (01) | DRG 177 ==
LOC: ED 09:42 → EDIP 11:47 → SUATTDRO 11:48 → 3N 13:20 → 4WST 04-24 18:03 → ICU 04-28 17:37 → 3N 05-02 17:00
PROVIDERS: ADMIT Internal Medicine; ATTEND Internal Medicine
PROC: XW033E5 Introduction of Remdesivir Anti-infective into Peripheral Vein, Percutaneous Approach, New Technology Group 5 (ICD-10-PCS; principal; 2021-04-20)
DX: U07.1 COVID-19 (principal); J12.82 Pneumonia due to coronavirus disease 2019; J96.01 Acute respiratory failure with hypoxia; D64.9 Anemia, unspecified; E11.9 Type 2 diabetes mellitus without complications; E87.6 Hypokalemia; E88.09 Other disorders of plasma-protein metabolism, not elsewhere classified; I10 Essential (primary) hypertension; M06.9 Rheumatoid arthritis, unspecified; R74.01 Elevation of levels of liver transaminase levels; Z95.5 Presence of coronary angioplasty implant and graft; Z82.49 Family history of ischemic heart disease and other diseases of the circulatory system; Z83.3 Family history of diabetes mellitus
CPT/HCPCS: 36415; 36600; 71045; 71275; 80048; 80053; 80069; 82040; 82607; 82728; 82803; 82962; 83036; 83540; 83550; 83605; 83615; 83735; 84439; 84443; 84481; 85025; 85379; 85384; 85610; 85730; 86140; 87040; 87324; 93005; 94640; 96372; 96374; 96375; G0378; J0456; J0696; J1100; J1650; J2405; Q9967; U0005; J1815; J7030; J7050; U0003